=== PATIENT | male | born 1960 ===

== ENCOUNTER 2019-05-28 10:57 | Emergency (ER) | payer SELFPAY ==
[2019-05-28 11:28] VITALS: BP 137/85
--- NOTE | 2019-05-28 12:06 | UC ---
Throat Pain/Nasal Paolo HPI - HPI Summary HPI Summary: Cough with intermittent productiveness, bilateral eye irritation and runny nose x1 week. Here traveling from the [place]. - History of Current Complaint Chief Complaint: UCGeneralIllness Stated Complaint: COUGH Time Seen by Provider: 05/28/19 11:48 Hx Obtained From: Patient Onset/Duration: Sudden Onset, Lasting Days - 7 Severity: Mild Pain Intensity: 0 Associated Signs & Symptoms: Positive: Dysphagia, Wheezing, Sinus Discomfort, Nasal Discharge - Allergies/Home Medications Allergies/Adverse Reactions: Allergies Allergy/AdvReac Type Severity Reaction Status Date / Time No Known Allergies Allergy Verified 05/28/19 11:23 Home Medications: Home Medications guaiFENesin [Mucinex] 600 mg PO BID PRN 05/28/19 [History Confirmed 05/28/19] PMH/Surg Hx/FS Hx/Imm Hx Previously Healthy: Yes - Surgical History Surgical History: Yes Surgery Procedure, Year, and Place: piece of intestine removed - Family History Known Family History: Positive: Hypertension - Social History Alcohol Use: Rare Substance Use Type: None Smoking Status (MU): Never Smoked Tobacco Review of Systems All Other Systems Reviewed And Are Negative: Yes Constitutional: Positive: Fatigue ENT: Positive: Sore Throat, Ear Ache, Nasal Discharge, Sinus Congestion Respiratory: Positive: Cough Neurological: Positive: Headache Is Patient Immunocompromised?: No Physical Exam Triage Information Reviewed: Yes Appearance: Well-Nourished, Ill-Appearing, Pain Distress Vital Signs: Initial Vital Signs Temp 98.6 F 05/28/19 11:23 Pulse 72 05/28/19 11:23 Resp 16 05/28/19 11:23 BP 137/85 05/28/19 11:23 Pulse Ox 100 05/28/19 11:23 Vital Signs Reviewed: Yes Eye Exam: Normal ENT: Positive: Pharyngeal erythema, Nasal congestion, Nasal drainage, TM bulging , TM dull, TM red, Sinus tenderness Dental Exam: Normal Neck exam: Normal Respiratory Exam: Normal Respiratory: Positive: Chest non-tender, Lungs clear, Normal breath sounds Cardiovascular Exam: Normal Cardiovascular: Positive: RRR, No Murmur, Pulses Normal Abdominal Exam: Normal Abdomen Description: Positive: Nontender, No Organomegaly, Soft Bowel Sounds: Positive: Present Musculoskeletal Exam: Normal Neurological Exam: Normal Psychological Exam: Normal Skin Exam: Normal Throat Pain/Nasal Course/Dx - Course Course Of Treatment: hx obtained, exam performed ,meds reviewed, treated for sinusitis and conjunctivitis - Differential Dx/Diagnosis Differential Diagnosis/HQI/PQRI: Otitis Media, Pharyngitis, Sinusitis, URI Provider Diagnosis: Sinusitis, Conjunctivitis Discharge - Sign-Out/Discharge Documenting (check all that apply): Patient Departure All imaging exams completed and their final reports reviewed: No Studies - Discharge Plan Condition: Stable Disposition: HOME Prescriptions: Albuterol HFA INHALER* [Ventolin HFA Inhaler*] 2 puff INH Q4H PRN #1 mdi PRN Reason: Cough Azithromyxin KRISTEL (NF) [Z-Kristel (Zithromax) 250 mg tabs #6] 2 tab PO .TODAY, THEN 1 DAILY #6 tab Erythromycin OPHTH.OINT* [Ilotycin OPHTH.OINT*] 1 applic BOTH EYES TID #1 tube predniSONE [Prednisone 20 MG TAB] 40 mg PO DAILY #10 tablet Patient Education Materials: Sinusitis (ED), Conjunctivitis (ED) Referrals: No Primary Care Phys,NOPCP [Primary Care Provider] - Additional Instructions: 1. take the predisone in the mornings. 2. Take a daily zyrtec ( antihistamine for the allergic type symtpoms) 3. Albuterol inhaler for the cough 4. Start the antibiotic ( azithromycin) in 2 days if not improving. 5. Lots of fluids and get plenty of rest. - Billing Disposition and Condition Condition: STABLE Disposition: Home
== END 2019-05-28 12:26 | disposition home or self-care (01) ==
LOC: UCCORT 10:57
DX: J32.9 Chronic sinusitis, unspecified (principal); H10.9 Unspecified conjunctivitis
CPT/HCPCS: 99202; G0463